=== PATIENT | female | born 1975 | race Caucasian/White ===

== ENCOUNTER → 2020-08-21 | Outpatient (CLI) | payer OTHER ==
[2020-08-22 11:14] LABS: HBSAG SCREEN Negative (Negative)
[2020-08-23 00:10] LABS: CCP ANTIBODIES IGG/IGA 3 units (0-19)
[2020-08-23 08:14] LABS: HCV AB <0.1 (0.0-0.9); HEP B CORE AB, TOT Negative (Negative); VITAMIN D, 25-HYDROXY 16.5 ng/mL (30.0-100.0)
[2020-08-24 07:10] LABS: QUANTIFERON MITOGEN VALUE >10.00 IU/mL (.); QUANTIFERON NIL VALUE 0.01 IU/mL (.); QUANTIFERON TB1 AG VALUE 0.02 IU/mL (.); QUANTIFERON-TB GOLD PLUS Negative (Negative)
[2020-08-25 16:11] LABS: ANTIMYELOPEROXIDASE (MPO) ABS <9.0 U/mL (0.0-9.0); ANTIPROTEINASE 3 (PR-3) ABS <3.5 U/mL (0.0-3.5); ATYPICAL PANCA <1:20 titer (Neg:<1:20); CYTOPLASMIC (C-ANCA) <1:20 titer (Neg:<1:20); PERINUCLEAR (P-ANCA) <1:20 titer (Neg:<1:20)
== END ==
LOC: LAB 13:42
PROVIDERS: Internal Medicine
DX: R06.09 Other forms of dyspnea (principal); R76.8 Other specified abnormal immunological findings in serum; E66.01 Morbid (severe) obesity due to excess calories; K11.7 Disturbances of salivary secretion; M25.259 Flail joint, unspecified hip; D89.89 Other specified disorders involving the immune mechanism, not elsewhere classified; Z79.899 Other long term (current) drug therapy
CPT/HCPCS: 36415; 71046; 82340; 82652; 83520; 85652; 86140; 86200; 86256; 86704; 86803; 87340